=== PATIENT | male | born 1965 | race Caucasian/White ===

== ENCOUNTER 2016-07-15 16:01 | Emergency (ER) | payer OTHER ==
[2016-07-15 16:02] VITALS: BMI 27.0
--- NOTE | 2016-07-15 17:57 | C.PDOC ---
History Of Present Illness 51 yo male come in for evaluation of B/L ankles pain L>R gradually worsen for past month. Pain is localized over malleolus and worse with weight bearing. Otherwise, pt denies known trauma or injury, fever, chills, skin changes, calfs pain, denies weakness, deformity, sensory or vascular deficits to B/L LEs. Ambulate to ED for evaluation, not in any apparent distress. Time Seen by Provider: 07/15/16 17:18 Chief Complaint (Nursing): Lower Extremity Problem/Injury History Per: Patient Onset/Duration Of Symptoms: Intermittent Episodes Current Symptoms Are (Timing): Still Present Severity: Moderate Past Medical History Reviewed: Historical Data, Nursing Documentation, Vital Signs Vital Signs: Last Vital Signs Temp 97.8 F 07/15/16 18:01 Pulse 76 07/15/16 18:01 Resp 18 07/15/16 18:01 BP 120/86 07/15/16 18:01 Pulse Ox 98 07/15/16 18:01 Family History: States: Unknown Family Hx - Social History Hx Tobacco Use: No Hx Alcohol Use: No Hx Substance Use: No - Immunization History Hx Tetanus Toxoid Vaccination: No Hx Influenza Vaccination: No Hx Pneumococcal Vaccination: No Review Of Systems Except As Marked, All Systems Reviewed And Found Negative. Constitutional: Negative for: Fever, Chills ENT: Negative for: Throat Pain Cardiovascular: Negative for: Chest Pain, Edema Musculoskeletal: Positive for: Other (B/L ankles pain) Skin: Negative for: Rash, Bruising Neurological: Negative for: Weakness, Numbness Physical Exam - Physical Exam Appears: Well, No Acute Distress Skin: Normal Color, Warm, Dry, No Rash, No Ecchymosis Eye(s): bilateral: Normal Inspection Extremity: Normal ROM, Tenderness (mild tenderness over medial malleolus L>R ankles. no edema, no palpable deformity, no erythema, no pitting edema. FAROM, no neurovascular deficist to B/L LEs.), No Calf Tenderness (B/L), Capillary Refill (less than 2sec to B/L feet), No Deformity, No Swelling Extremity: Bilateral: Atraumatic Neurological/Psych: Oriented x3, Normal Speech, Normal Motor, Normal Sensation, Normal Reflexes ED Course And Treatment O2 Sat by Pulse Oximetry: 98 Pulse Ox Interpretation: Normal Progress Note: On re-evaluation, pt is afebrile, hemodynamicaly stable. Non- toxic. Ambulatory in ED with stable gait. B/L LEs: exam c/w ankle arthralgia r /o bursitis. FAROM, no cellulitis, no edema. No B/L calf tenderness. Xrays review and appears normal. Pt advised. ref. to F/u with Phot[employer] Panel Installer in 2-3 days for re-evaluation. Return to ED if any worsening ro new changes. Disposition Counseled Patient/Family Regarding: Studies Performed, Diagnosis, Need For Followup, Rx Given - Disposition Referrals: [facility] [Outside] [facility] [Outside] Disposition: HOME/ ROUTINE Disposition Time: 18:03 Condition: STABLE Additional Instructions: Change shoe weekly Ankle stretching Take medication as prescribed Follow up with [employer] in 2-3 days for re-evaluation. Return to ED if any worsening or new changes. Prescriptions: Prednisone [Deltasone] 20 mg PO DAILY #3 tablet traMADol [Ultram] 50 mg PO TID #7 tab Instructions: Ankle Bursitis (ED) - Clinical Impression Clinical Impression: Bursitis of both ankles
[2016-07-15 18:04] VITALS: O2SAT 98
[2016-07-15 18:43] VITALS: BP 118/78; PULSE 80; RESP 20; TEMP 98
--- NOTE | 2016-07-16 10:42 | RAD ---
PROCEDURE: HISTORY: pain COMPARISON: None TECHNIQUE: Three views of each ankle obtained FINDINGS: Normal bone mineralization. No fracture or bone destruction. Ankle mortise intact. Bilateral vascular calcifications IMPRESSION: No bony abnormality noted
== END 2016-07-15 18:45 | disposition home or self-care (01) ==
LOC: C.ER 16:01
DX: M71.572 Other bursitis, not elsewhere classified, left ankle and foot (principal); M71.571 Other bursitis, not elsewhere classified, right ankle and foot

== ENCOUNTER 2017-04-22 11:44 | Emergency (ER) | payer OTHER ==
[2017-04-22 11:44] VITALS: BMI 26.4
--- NOTE | 2017-04-22 12:25 | C.PDOC ---
History Of Present Illness 52 yo male c/o productive cough, congestion and subjective fever for 4 days ( since Friday). Pt notes that he has a h/o sinusitis, he takes Sudfed with some relief. Notes whenever he gets these symptoms he comes to the ER. NO chest pain, SOB, difficulty swallowing headache, or neck pain. Time Seen by Provider: 04/22/17 11:54 Chief Complaint (Nursing): Cough, Cold, Congestion History Per: Patient, Ski Patroller History/Exam Limitations: no limitations Onset/Duration Of Symptoms: Days Current Symptoms Are (Timing): Still Present Past Medical History Vital Signs: Last Vital Signs Temp 98.5 F 04/22/17 11:48 Pulse 92 H 04/22/17 11:48 Resp 16 04/22/17 11:48 BP 146/97 H 04/22/17 11:48 Pulse Ox 99 04/22/17 13:14 Family History: States: Unknown Family Hx - Social History Hx Tobacco Use: No Hx Alcohol Use: No Hx Substance Use: No - Immunization History Hx Tetanus Toxoid Vaccination: No Hx Influenza Vaccination: No Hx Pneumococcal Vaccination: No Review Of Systems Except As Marked, All Systems Reviewed And Found Negative. ENT: Positive for: Nose Congestion Respiratory: Positive for: Cough Physical Exam - Physical Exam Appears: Well, Non-toxic, No Acute Distress Skin: Normal Color, Warm, Dry Head: Atraumatic, Normacephalic Eye(s): bilateral: Normal Inspection, EOMI Ear(s): Bilateral: Normal Nose: Other ((+) nasal congestion) Oral Mucosa: Moist Throat: Normal, No Erythema, No Exudate Neck: Normal, Normal ROM, Supple Lymphatic: Normal Exam Chest: Symmetrical Cardiovascular: Rhythm Regular Respiratory: Normal Breath Sounds Gastrointestinal/Abdominal: Normal Exam, Soft, No Tenderness Back: Normal Inspection Extremity: Normal ROM Neurological/Psych: Oriented x3, Normal Speech ED Course And Treatment O2 Sat by Pulse Oximetry: 99 Progress Note: Discussed signs and symptoms on concern and symtpomatic treatment for viral illness. Pt was instructed to stop taking sudafed, try mucinex and flonase. Instructed to follow up with PMD in 1-2 days. hydrotechnical specialist used to ensure understanding. Disposition - Disposition Disposition: HOME/ ROUTINE Disposition Time: 12:22 Condition: STABLE Additional Instructions: Jimena yao o la clnica en 2-5 murcia sin falta, para mas evaluacin. [place] los medicamentos cheng indicado. Volver a la blanca de emergencia en cualquier momento si los sntomas persisten o empeoran. Prescriptions: Fluticasone Nasal [Flonase] 1 actuation NS DAILY #1 spr Guaifen/Dextromethorphan/PE [Mucinex Fast-Max Congest-Cough] 1 each PO Q6 #20 tablet Instructions: Upper Respiratory Infection (ED) Forms: [employer] (Mauritian) Print Language: WOLOF - Clinical Impression Clinical Impression: Upper respiratory infection
[2017-04-22 13:20] VITALS: BP 153/88; PULSE 89; RESP 20; TEMP 99.2; O2SAT 99
== END 2017-04-22 13:20 | disposition home or self-care (01) ==
LOC: C.ER 11:44
DX: J06.9 Acute upper respiratory infection, unspecified (principal)

== ENCOUNTER 2017-05-26 08:53 | Day surgery (SDC) | payer OTHER ==
[2017-05-26] MEDS ORDERED: Propofol 10 mg/ml Inj (20 ML) ONE ×2 (11:36→11:44)
[2017-05-26] MEDS ORDERED: Midazolam 2 MG/2 ML VIAL ONE (11:43)
[2017-05-26 11:55] VITALS: O2SAT 100
[2017-05-26 15:21] VITALS: BP 126/92; PULSE 67; RESP 14; TEMP 98
== END 2017-05-26 13:45 | disposition home or self-care (01) ==
LOC: C.ENDO 08:53
PROVIDERS: ATTEND Internal Medicine Gastroenterology
DX: Z12.11 Encounter for screening for malignant neoplasm of colon (principal); R10.13 Epigastric pain; K57.30 Diverticulosis of large intestine without perforation or abscess without bleeding; K64.8 Other hemorrhoids
CPT/HCPCS: 45378; J2250; J2704

== ENCOUNTER 2017-10-02 15:10 | Emergency (ER) | payer OTHER ==
[2017-10-02 15:28] VITALS: BMI 25.9
[2017-10-02 15:31] VITALS: BP 131/80; PULSE 93; RESP 18; TEMP 98.6; O2SAT 96
--- NOTE | 2017-10-02 16:26 | C.PDOC ---
Time Seen by Provider: 10/02/17 15:40 Chief Complaint (Nursing): Cough, Cold, Congestion History Per: Patient Onset/Duration Of Symptoms: Days (5) Current Symptoms Are (Timing): Still Present Associated Symptoms: Sore Throat, Cough, Sputum, Nasal Congestion Severity: Moderate Additional History Per: Prior Records Past Medical History Reviewed: Historical Data, Nursing Documentation, Vital Signs Vital Signs: Last Vital Signs Temp 98.6 F 10/02/17 15:27 Pulse 93 H 10/02/17 15:27 Resp 18 10/02/17 15:27 BP 131/80 10/02/17 15:27 Pulse Ox 96 10/02/17 16:26 - Medical History PMH: No Chronic Diseases Surgical History: No Surg Hx Family History: States: Unknown Family Hx - Social History Hx Tobacco Use: No Hx Alcohol Use: No Hx Substance Use: No - Immunization History Hx Tetanus Toxoid Vaccination: No Hx Influenza Vaccination: No Hx Pneumococcal Vaccination: No Review Of Systems Except As Marked, All Systems Reviewed And Found Negative. Constitutional: Positive for: Fever (subjective) ENT: Positive for: Nose Congestion, Throat Pain. Negative for: Ear Pain Respiratory: Positive for: Cough, Sputum. Negative for: Shortness of Breath, Hemoptysis Gastrointestinal: Negative for: Vomiting, Abdominal Pain Genitourinary: Negative for: Dysuria Musculoskeletal: Negative for: Neck Pain Skin: Negative for: Rash Neurological: Negative for: Weakness, Numbness Physical Exam - Physical Exam Appears: Non-toxic, No Acute Distress Skin: Normal Color, Warm, Dry, No Rash Head: Atraumatic, Normacephalic Eye(s): bilateral: Normal Inspection, PERRL, EOMI Oral Mucosa: Moist, No Drooling, No Trismus Throat: Erythema, No Exudate, No Drooling, No Mass Neck: Normal ROM, Supple Cardiovascular: Rhythm Regular Respiratory: Normal Breath Sounds, No Accessory Muscle Use Gastrointestinal/Abdominal: Soft, No Tenderness Back: No CVA Tenderness Extremity: Normal ROM, No Pedal Edema, No Calf Tenderness Neurological/Psych: Oriented x3, Normal Speech, Normal Motor, Normal Sensation ED Course And Treatment O2 Sat by Pulse Oximetry: 96 Pulse Ox Interpretation: Normal - Radiology CXR: Viewed By Me, Read By Radiologist CXR Interpretation: Yes: No Acute Disease Disposition Counseled Patient/Family Regarding: Studies Performed, Diagnosis, Need For Followup, Rx Given - Disposition Referrals: [facility] [Outside] Disposition: HOME/ ROUTINE Disposition Time: 16:29 Condition: STABLE Additional Instructions: Follow up with your doctor or in the clinic. Return to the ER if you develop shortness of breath, high fever, worsening of symptoms or if you have any other concerns. Prescriptions: Azithromycin [Zithromax] 1 dose PO DAILY #1 pkt Benzonatate 200 mg PO TID PRN #30 capsule PRN Reason: Cough Instructions: Acute Bronchitis, Adult (DC) Print Language: KOSOVAN - Clinical Impression Clinical Impression: Acute bronchitis
--- NOTE | 2017-10-02 16:30 | RAD ---
HISTORY: Cough COMPARISON: Chest radiographs 06/15/2014. TECHNIQUE: Chest PA and lateral FINDINGS: LUNGS: Trace biapical pleural thickening again seen, right greater than left. PLEURA: No significant pleural effusion identified. No pneumothorax apparent. CARDIOVASCULAR: Normal. OSSEOUS STRUCTURES: No significant abnormalities. VISUALIZED UPPER ABDOMEN: Normal. OTHER FINDINGS: None. IMPRESSION: No interval acute cardiopulmonary disease appreciated.
--- NOTE | 2017-10-05 15:33 | CARD ---
APPROVED REPORT EKG Measurement Heart [id number] <Conclusion> Normal sinus rhythm Increased R/S ratio in V1, consider early transition or posterior infarct Abnormal ECG
== END 2017-10-02 16:35 | disposition home or self-care (01) ==
LOC: C.ER 15:10
DX: J20.9 Acute bronchitis, unspecified (principal)

== ENCOUNTER 2018-05-20 12:19 | Emergency (ER) | payer OTHER | END 2018-05-20 15:18 | disposition home or self-care (01) | LOC: C.ER 12:19 ==

== ENCOUNTER 2018-05-24 14:21 | Emergency (ER) | payer OTHER ==
[2018-05-24 14:53] VITALS: BMI 25.8
[2018-05-24] MEDS ORDERED: Alum-Mag Hydrox-Simethicone Susp (30 mL) PO STA (14:53)
--- NOTE | 2018-05-24 14:54 | C.PDOC ---
History Of Present Illness 53 year old male presents to the ED complaining of diarrhea for one week. Patient was seen in the ED for same presentation and was educated on diet changes. However, he reports he resumed normal diet. States he only takes Bentyl occasionally. Denies any abdominal pain, nausea, vomiting, fever, chills, urinary symptoms, or any other complaints. Time Seen by Provider: 05/24/18 14:45 History Per: Patient History/Exam Limitations: no limitations Onset/Duration Of Symptoms: Days Associated Symptoms: Diarrhea. denies: Fever, Chills, Nausea, Vomiting, Urinary Symptoms Past Medical History Reviewed: Historical Data, Nursing Documentation, Vital Signs - Medical History PMH: Other PMH: allergic rhinitis Surgical History: No Surg Hx Family History: States: No Known Family Hx - Social History Hx Tobacco Use: No Hx Alcohol Use: No Hx Substance Use: No - Immunization History Hx Tetanus Toxoid Vaccination: No Hx Influenza Vaccination: No Hx Pneumococcal Vaccination: No Review Of Systems Except As Marked, All Systems Reviewed And Found Negative. Constitutional: Negative for: Fever, Chills Gastrointestinal: Positive for: Diarrhea. Negative for: Nausea, Vomiting, Abdominal Pain Genitourinary: Negative for: Dysuria, Hematuria Physical Exam - Physical Exam Appears: Non-toxic, No Acute Distress Skin: Warm, Dry Head: Normacephalic Eye(s): bilateral: Normal Inspection Nose: Normal Oral Mucosa: Moist Neck: Supple Chest: Symmetrical Cardiovascular: Rhythm Regular Respiratory: Normal Breath Sounds, No Rales, No Rhonchi, No Wheezing Gastrointestinal/Abdominal: Soft, No Tenderness, No Distention, No Guarding, No Rebound Neurological/Psych: Oriented x3, Normal Speech Gait: Steady Medical Decision Making Medical Decision Making: Impression: prob viral diarrhea Plan - Maalox 30ml PO Patient advancing diet too soon. Patient with benign exam. normal VS. BRAT diet educated Disposition Doctor Will See Patient In The: Office Counseled Patient/Family Regarding: Studies Performed, Diagnosis - Disposition Referrals: [facility] [Outside] [facility] [Outside] [facility] [Outside] Disposition: HOME/ ROUTINE Disposition Time: 14:54 Condition: GOOD Additional Instructions: Maalox 30 cc (aminata cucharada) 5 veces al anthony Dieta de BRAT: Bananas, arroz cross, diaz jonah, manzana kostas agua/Gatorade Instructions: Diarrhea in Adolescents and Adults Forms: [employer] (Italian) Print Language: FRISIAN - Clinical Impression Clinical Impression: Diarrhea - Scribe Statement The provider has reviewed the documentation as recorded by the Scribe Deisi Garcia All medical record entries made by the Scribe were at my direction and personally dictated by me. I have reviewed the chart and agree that the record accurately reflects my personal performance of the history, physical exam, medical decision making, and the department course for this patient. I have also personally directed, reviewed, and agree with the discharge instructions and disposition.
[2018-05-24] MEDS ORDERED: Aluminum Hydroxide/Magnesium Hydroxide Susp (30 mL) ONE (15:12)
== END 2018-05-24 15:12 | disposition home or self-care (01) ==
LOC: C.ER 14:21
DX: R19.7 Diarrhea, unspecified (principal)

== ENCOUNTER 2018-05-26 14:10 | Emergency (ER) | payer OTHER ==
[2018-05-26 14:17] VITALS: BMI 26.6
[2018-05-26 14:30] VITALS: BP 129/94; PULSE 70; RESP 18; TEMP 98.6; O2SAT 100
--- NOTE | 2018-05-26 14:45 | C.PDOC ---
History Of Present Illness Pt had URI symptoms associated with diarrhea for which he was seen here and prescribed Zithromax. URI symptoms resolved and diarrhea improved, but pt is till having GI upset with passing gas and gurgling sensation after eating. Time Seen by Provider: 05/26/18 14:31 Chief Complaint (Nursing): GI Problem History Per: Patient Onset/Duration Of Symptoms: Days (about 1 week) Current Symptoms Are (Timing): Still Present Severity: Moderate Location Of Pain/Discomfort: Diffuse Radiation Of Pain To:: None Quality Of Discomfort: Gas. denies: "Pain" Associated Symptoms: Diarrhea (soft stools) Exacerbating Factors: Food Last Bowel Movement: Today Additional History Per: Prior Records Past Medical History Reviewed: Historical Data, Nursing Documentation, Vital Signs Vital Signs: Last Vital Signs Temp 98.6 F 05/26/18 14:22 Pulse 70 05/26/18 14:22 Resp 18 05/26/18 14:22 BP 129/94 H 05/26/18 14:22 Pulse Ox 100 05/26/18 14:22 - Medical History PMH: No Chronic Diseases Surgical History: No Surg Hx Family History: States: Unknown Family Hx - Social History Hx Tobacco Use: No Hx Alcohol Use: No Hx Substance Use: No - Immunization History Hx Tetanus Toxoid Vaccination: No Hx Influenza Vaccination: No Hx Pneumococcal Vaccination: No Review Of Systems Except As Marked, All Systems Reviewed And Found Negative. Constitutional: Negative for: Fever Cardiovascular: Negative for: Chest Pain Respiratory: Negative for: Cough, Shortness of Breath Gastrointestinal: Negative for: Vomiting, Constipation, Melena, Hematochezia, Hematemesis Genitourinary: Negative for: Dysuria Musculoskeletal: Negative for: Back Pain Skin: Negative for: Rash Neurological: Negative for: Weakness Physical Exam - Physical Exam Appears: Non-toxic, No Acute Distress Skin: Normal Color, Warm, Dry, No Rash Head: Atraumatic, Normacephalic Eye(s): bilateral: PERRL, EOMI Neck: Normal ROM, Supple Cardiovascular: Rhythm Regular Respiratory: Normal Breath Sounds, No Accessory Muscle Use Gastrointestinal/Abdominal: Soft, No Tenderness, No Distention Back: No CVA Tenderness Extremity: Normal ROM Neurological/Psych: Oriented x3, Normal Motor, Normal Sensation ED Course And Treatment O2 Sat by Pulse Oximetry: 100 Pulse Ox Interpretation: Normal Disposition Counseled Patient/Family Regarding: Diagnosis, Need For Followup, Rx Given - Disposition Referrals: [facility] [Outside] Disposition: HOME/ ROUTINE Disposition Time: 14:47 Condition: STABLE Additional Instructions: Follow up in the clinic for further evaluation and treatment. Return to the ER if you develop fever, vomiting, abdominal pain, bloody stools, worsening of symptoms or if you have any other concerns. Prescriptions: L.acidoph,Paracasei, B.lactis [Probiotic] 1 each PO DAILY #30 capsule Simethicone 125 mg PO QID PRN #30 tab.chew PRN Reason: Flatulence Instructions: Dyspepsia (DC) Forms: [employer] (Ghanaian) Print Language: ALBANIAN - Clinical Impression Clinical Impression: Dyspepsia
== END 2018-05-26 15:20 | disposition home or self-care (01) ==
LOC: C.ER 14:10
DX: R10.13 Epigastric pain (principal)

== ENCOUNTER 2018-06-01 14:41 | Emergency (ER) | payer OTHER ==
[2018-06-01 14:41] VITALS: BMI 26.6
[2018-06-01 15:06] VITALS: RESP 18; TEMP 98.5; O2SAT 99
--- NOTE | 2018-06-01 17:11 | C.PDOC ---
History Of Present Illness 53 y/o male presents to the ED complaining of cough and congestion for 3 days. States the coughing brings up some phlegm. Symptoms are associated with subjective fever. Patient denies hx of smoking. He reports having bronchitis in the past. Otherwise patient denies any chest pain, SOB, myalgias, nausea, vomiting, or diarrhea. Time Seen by Provider: 06/01/18 15:13 Chief Complaint (Nursing): Cough, Cold, Congestion History Per: Patient History/Exam Limitations: no limitations Onset/Duration Of Symptoms: Days (3) Current Symptoms Are (Timing): Still Present Associated Symptoms: Cough, Nasal Congestion Past Medical History Reviewed: Historical Data, Nursing Documentation, Vital Signs Vital Signs: Last Vital Signs Temp 98.5 F 06/01/18 15:03 Pulse 89 06/01/18 15:03 Resp 18 06/01/18 15:03 BP 138/88 06/01/18 15:03 Pulse Ox 99 06/01/18 15:03 - Medical History PMH: Bronchitis Family History: States: Unknown Family Hx - Social History Hx Tobacco Use: No Hx Alcohol Use: No Hx Substance Use: No - Immunization History Hx Tetanus Toxoid Vaccination: No Hx Influenza Vaccination: No Hx Pneumococcal Vaccination: No Review Of Systems Constitutional: Negative for: Fever, Chills ENT: Positive for: Nose Congestion Cardiovascular: Negative for: Chest Pain, Palpitations Respiratory: Positive for: Cough, Sputum. Negative for: Shortness of Breath Gastrointestinal: Negative for: Nausea, Vomiting, Diarrhea Musculoskeletal: Negative for: Back Pain Skin: Negative for: Rash Neurological: Negative for: Weakness, Dizziness Physical Exam - Physical Exam Appears: Non-toxic, No Acute Distress Skin: Warm, Dry, No Rash Head: Atraumatic, Normacephalic Eye(s): bilateral: Normal Inspection, PERRL, EOMI Nose: Normal Oral Mucosa: Moist Throat: Erythema (mild pharyngeal erythema), No Exudate, No Drooling Neck: Normal ROM, Supple Chest: Symmetrical Cardiovascular: Rhythm Regular, No Murmur Respiratory: Normal Breath Sounds, No Accessory Muscle Use, No Rhonchi, No Wheezing Extremity: Bilateral: Atraumatic, Normal Color And Temperature Pulses: Left Radial: Normal, Right Radial: Normal Neurological/Psych: Oriented x3, Normal Speech ED Course And Treatment O2 Sat by Pulse Oximetry: 99 (RA) Pulse Ox Interpretation: Normal Medical Decision Making Medical Decision Making: Impression: Pharyngitis Plan: Rapid strep test and throat cultures sent Tests reviewed, negative strep. Patient is stable for discharge home, counseled regarding likely viral illness and course of treatment. Disposition - Disposition Disposition: HOME/ ROUTINE Disposition Time: 17:20 Condition: STABLE Additional Instructions: PEGGY JOHNSON, thank you for letting us take care of you today. Your provider was Cuca Meraz MD and you were treated for COUGHING. The emergency medical care you received today was directed at your acute symptoms. If you were prescribed any medication, please fill it and take as directed. It may take several days for your symptoms to resolve. Return to the Emergency Department if your symptoms worsen, do not improve, or if you have any other problems. Please contact your doctor or call one of the physicians/clinics you have been referred to that are listed on the Patient Visit Information form that is included in your discharge packet. Bring any paperwork you were given at discharge with you along with any medications you are taking to your follow up visit. Our treatment cannot replace ongoing medical care by a primary care provider outside of the emergency department. Thank you for allowing the [facility] team to be part of your care today. If you had an X-Ray or CT scan: A Radiologist will review the ED reading if any change in treatment is needed we will contact you. If you had a blood, urine, or wound culture: It will take several days for the results, if any change in treatment is needed we will contact you. If you had an STI test: It will take 48 hours for the results. Please call after 1 week if you have not heard back. Instructions: Upper Respiratory Infection (ED) Forms: [employer] (Lao) Print Language: ARABIC - Clinical Impression Clinical Impression: Pharyngitis, Bronchitis - Scribe Statement The provider has reviewed the documentation as recorded by the Ivette Martin Provider Attestation: All medical record entries made by the Ivette were at my direction and personally dictated by me. I have reviewed the chart and agree that the record accurately reflects my personal performance of the history, physical exam, medical decision making, and the department course for this patient. I have also personally directed, reviewed, and agree with the discharge instructions and disposition.
[2018-06-01 17:47] VITALS: BP 132/79; PULSE 68
== END 2018-06-01 17:48 | disposition home or self-care (01) ==
LOC: C.ER 14:41
DX: J40 Bronchitis, not specified as acute or chronic (principal); J02.9 Acute pharyngitis, unspecified